=== PATIENT | male | born 1995 | race Caucasian/White ===

== ENCOUNTER 2018-01-17 05:58 | Emergency (ER) | payer MEDICAID ==
[~2018-01-17] VITALS: Ht 172.7 cm; Wt 81.0 kg
[~2018-01-17 05:58] MED LIST: FAMO40TA59 PO; ONDA4TAB12 PO
[2018-01-17] MEDS ORDERED: ipratropium/albuterol 3ml nebule NEB ONE (06:35)
[2018-01-17] MEDS ORDERED: albuterol 2.5 MG/3 ML nebule NEB ONE (06:35)
[2018-01-17] MEDS ORDERED: ALBU18HF2 INH (07:10)
[2018-01-17 07:30] VITALS: BP 145/106
== END 2018-01-17 07:30 | disposition home or self-care (01) ==
LOC: ER 05:59
DX: J45.901 Unspecified asthma with (acute) exacerbation (principal); G89.29 Other chronic pain; M54.2 Cervicalgia; F31.9 Bipolar disorder, unspecified; F12.90 Cannabis use, unspecified, uncomplicated; F17.200 Nicotine dependence, unspecified, uncomplicated; Z88.1 Allergy status to other antibiotic agents; Z79.899 Other long term (current) drug therapy
CPT/HCPCS: 71045; 93005; 94640; 94760; 99284

== ENCOUNTER 2018-03-29 23:00 | Emergency (ER) | payer MEDICAID ==
[~2018-03-29] VITALS: Ht 170.2 cm; Wt 59.0 kg
[~2018-03-29 23:00] MED LIST changes: +ALBU18HF2 INH
[2018-03-29 23:05] VITALS: BP 140/68
[2018-03-29 23:37] LABS: BASOPHILS # (AUTO) 0.1 X10'3 (0-0.2); BASOPHILS % (AUTO) 0.9 % (0-1); EOSINOPHILS % (AUTO) 0.3 % (0-6); HEMATOCRIT 41.6 % (42.0-52.0); HEMOGLOBIN 14.1 g/dl (14.0-17.9); LYMPHOCYTES # (AUTO) 1.4 X10'3 (1.1-4.8); LYMPHOCYTES % (AUTO) 23.5 % (21-51); MEAN CORPUSCULAR HEMOGLOBIN 31.1 PG (27.0-31.0); MEAN CORPUSCULAR VOLUME 91.5 FL (78-98); MEAN PLATELET VOLUME 7.3 FL (7.4-10.4); MONOCYTES # (AUTO) 0.4 X10'3 (0-0.9); MONOCYTES % (AUTO) 6.2 % (2-12); NEUTROPHILS # (AUTO) 4.1 X10'3 (1.8-7.7); NEUTROPHILS % (AUTO) 69.1 % (42-75); PLATELET COUNT 287 X10'3 (140-440); RED BLOOD COUNT 4.54 X10'6 (4.70-6.10); RED CELL DISTRIBUTION WIDTH 13.5 % (11.5-14.5); WHITE BLOOD COUNT 5.9 X10'3 (4.5-11.0)
[2018-03-29 23:51] LABS: PROTHROMBIN TIME 10.6 SECONDS (9.0-12.0)
[2018-03-29 23:52] LABS: ALANINE AMINOTRANSFERASE 28 U/L (12-78); ALBUMIN 4.3 G/DL (3.4-5.0); ALBUMIN/GLOBULIN RATIO 1.2 (1.1-1.5); ALKALINE PHOSPHATASE 89 IU/L (46-116); ANION GAP 9 (8-16); ASPARTATE AMINO TRANSFERASE 29 U/L (10-37); BILIRUBIN,TOTAL 0.7 MG/DL (0.1-1.0); BLOOD UREA NITROGEN 18 MG/DL (7-18); BUN/CREATININE RATIO 17.5 (5.4-32.0); CHLORIDE 102 MMOL/L (99-107); CREATININE 1.03 MG/DL (0.60-1.10); GLUCOSE 97 MG/DL (70-104); SODIUM 139 MMOL/L (135-145); TOTAL CARBON DIOXIDE 28.4 MMOL/L (24-32); eGFR 88 ML/MIN
[2018-03-30 00:58] LABS: CLARITY,URINE CLEAR (Clear); COLOR,URINE STRAW (Yellow); GLUCOSE, URINE NEGATIVE (Neg); KETONES,URINE TRACE mg/dl (Neg); LEUKOCYTE ESTERASE ,URINE NEGATIVE (Neg); NITRITES, URINE NEGATIVE (Neg); OCCULT BLOOD,URINE NEGATIVE (Neg); PROTEIN,URINE NEGATIVE (Neg); UROBILINOGEN,URINE 0.2 E.U/dL (0.2-1.0)
[2018-03-30 01:06] LABS: UA COLLECTION TYPE CLN CATCH MIDSTREAM
[2018-03-30] MEDS ORDERED: naproxen 500mg tablet PO ONE ×2 (01:15→01:40)
[2018-03-30] MEDS ORDERED: ondansetron 4mg rapidly disintigrating tab PO ONE (01:15)
[2018-03-30] MEDS ORDERED: NAPR-56 PO (01:38)
[2018-03-30] MEDS ORDERED: CYCL-1 PO (01:38)
[2018-03-30] MEDS ORDERED: dicyclomine 10 MG capsule PO ONE (01:40)
[2018-03-30] MEDS ORDERED: cyclobenzaprine 10mg tablet PO ONE (01:40)
[2018-03-30 04:40] LABS: URINE AMPHETAMINE SCREEN POSITIVE (Neg); URINE BARBITUATE SCREEN NEGATIVE (Neg); URINE BENZODIAZEPINES SCREEN NEGATIVE (Neg); URINE CANNABINOID SCREEN NEGATIVE (Neg); URINE COCAINE SCREEN NEGATIVE (Neg); URINE METHADONE SCREEN NEGATIVE (Neg); URINE OPIATE SCREEN NEGATIVE (Neg); URINE PHENCYCLIDINE SCREEN NEGATIVE (Neg)
== END 2018-03-30 01:55 | disposition home or self-care (01) ==
LOC: ER 23:00
DX: M25.512 Pain in left shoulder (principal); F19.20 Other psychoactive substance dependence, uncomplicated; F11.20 Opioid dependence, uncomplicated; J45.909 Unspecified asthma, uncomplicated; F12.90 Cannabis use, unspecified, uncomplicated; R10.9 Unspecified abdominal pain; Z88.1 Allergy status to other antibiotic agents; X50.0XXA Overexertion from strenuous movement or load, initial encounter; Y93.89 Activity, other specified; Y92.69 Other specified industrial and construction area as the place of occurrence of the external cause; Y99.9 Unspecified external cause status
CPT/HCPCS: 36415; 73030; 80053; 80305; 81003; 85025; 85610; 99285

== ENCOUNTER 2018-04-16 14:56 | Emergency (ER) | payer MEDICAID ==
[~2018-04-16] VITALS: Ht 170.2 cm; Wt 81.8 kg
[~2018-04-16 14:56] MED LIST changes: +CYCL-1 PO; +NAPR-56 PO
[2018-04-16] MEDS ORDERED: IBUP-1984 PO (16:08)
[2018-04-16 17:45] VITALS: BP 129/78
== END 2018-04-16 16:33 | disposition home or self-care (01) ==
LOC: ER 14:56
DX: M25.512 Pain in left shoulder (principal); R42 Dizziness and giddiness; J45.909 Unspecified asthma, uncomplicated; F12.90 Cannabis use, unspecified, uncomplicated; F15.90 Other stimulant use, unspecified, uncomplicated; Z91.030 Bee allergy status
CPT/HCPCS: 73030; 99284

== ENCOUNTER 2019-11-08 10:39 | Emergency (ER) | payer MEDICAID, OTHER ==
[~2019-11-08] VITALS: Ht 170.2 cm; Wt 77.3 kg
[~2019-11-08 10:39] MED LIST changes: -NAPR-56 PO
[2019-11-08 11:00] VITALS: BP 119/72
[2019-11-08] MEDS ORDERED: LIDOcaine 1% W/epiNEPHrine 1:200,000 10ml vial IJ ONE (12:50)
[2019-11-08] MEDS ORDERED: DOXY100C77 PO (13:25)
== END 2019-11-08 13:50 | disposition home or self-care (01) ==
LOC: ER 10:39
DX: L02.31 Cutaneous abscess of buttock (principal); J45.909 Unspecified asthma, uncomplicated; F31.9 Bipolar disorder, unspecified; F12.90 Cannabis use, unspecified, uncomplicated; Z72.89 Other problems related to lifestyle; Z91.030 Bee allergy status; Z79.2 Long term (current) use of antibiotics; Z79.899 Other long term (current) drug therapy
CPT/HCPCS: 10060; 99283

== ENCOUNTER 2019-12-28 13:47 | Emergency (ER) | payer MEDICAID, OTHER ==
[~2019-12-28] VITALS: Ht 177.8 cm; Wt 90.0 kg
[2019-12-28 13:59] VITALS: BP 129/63
[2019-12-28] MEDS ORDERED: BACDS PO (15:15)
== END 2019-12-28 15:37 | disposition home or self-care (01) ==
LOC: ER 13:48
DX: S61.216D Laceration without foreign body of right little finger without damage to nail, subsequent encounter (principal); L08.89 Other specified local infections of the skin and subcutaneous tissue; J45.909 Unspecified asthma, uncomplicated; F12.90 Cannabis use, unspecified, uncomplicated; Z91.030 Bee allergy status; X58.XXXD Exposure to other specified factors, subsequent encounter
CPT/HCPCS: 99283

== ENCOUNTER 2021-05-25 08:55 | Emergency (ER) | payer MEDICAID, OTHER ==
[~2021-05-25] VITALS: Ht 170.2 cm; Wt 86.4 kg
[2021-05-25 09:26] VITALS: BP 131/78
[2021-05-25] MEDS ORDERED: IBUP-1984 PO (10:28)
== END 2021-05-25 10:42 | disposition home or self-care (01) ==
LOC: ER 08:56
DX: M79.632 Pain in left forearm (principal); F31.9 Bipolar disorder, unspecified; F12.10 Cannabis abuse, uncomplicated; J45.909 Unspecified asthma, uncomplicated; Z91.018 Allergy to other foods; Z79.899 Other long term (current) drug therapy
CPT/HCPCS: 73090; 99283

== ENCOUNTER 2021-12-11 12:52 | Emergency (ER) | payer MEDICAID ==
[~2021-12-11] VITALS: Ht 170.2 cm; Wt 79.5 kg
[2021-12-11] MEDS ORDERED: quetiapine 100mg tablet PO STA (15:50)
[2021-12-11] MEDS ORDERED: risperiDONE 2mg tablet PO ONE (15:50)
[2021-12-11 15:57] LABS: CLARITY,URINE CLEAR (Clear); COLOR,URINE YELLOW (Yellow); GLUCOSE, URINE NEGATIVE (Neg); KETONES,URINE NEGATIVE (Neg); LEUKOCYTE ESTERASE ,URINE NEGATIVE (Neg); NITRITES, URINE NEGATIVE (Neg); OCCULT BLOOD,URINE NEGATIVE (Neg); PROTEIN,URINE NEGATIVE (Neg); UROBILINOGEN,URINE 0.2 E.U/dL (0.2-1.0)
[2021-12-11 15:58] LABS: UA COLLECTION TYPE CLN CATCH MIDSTREAM
[2021-12-11 15:59] LABS: URINE AMPHETAMINE SCREEN NEGATIVE (Neg); URINE BARBITUATE SCREEN NEGATIVE (Neg); URINE BENZODIAZEPINES SCREEN NEGATIVE (Neg); URINE CANNABINOID SCREEN POSITIVE (Neg); URINE COCAINE SCREEN NEGATIVE (Neg); URINE METHADONE SCREEN NEGATIVE (Neg); URINE OPIATE SCREEN NEGATIVE (Neg); URINE PHENCYCLIDINE SCREEN NEGATIVE (Neg)
[2021-12-11] MEDS ORDERED: QUEtiapine 25mg tablet PO STA (16:04)
[2021-12-11 16:29] LABS: BASOPHILS % (AUTO) 0.6 % (0-1); EOSINOPHILS # (AUTO) 0.1 X10'3 (0-0.9); EOSINOPHILS % (AUTO) 1.4 % (0-6); HEMATOCRIT 39.6 % (42.0-52.0); HEMOGLOBIN 13.5 g/dl (14.0-17.9); LYMPHOCYTES # (AUTO) 2.4 X10'3 (1.1-4.8); LYMPHOCYTES % (AUTO) 30.6 % (21-51); MEAN CORPUSCULAR HEMOGLOBIN 31.8 PG (27.0-31.0); MEAN CORPUSCULAR HGB CONC 34.1 g/dL (33.0-36.5); MEAN PLATELET VOLUME 7.6 FL (7.4-10.4); MONOCYTES # (AUTO) 0.5 X10'3 (0-0.9); MONOCYTES % (AUTO) 6.4 % (2-12); NEUTROPHILS # (AUTO) 4.8 X10'3 (1.8-7.7); PLATELET COUNT 244 X10'3 (140-440); RED BLOOD COUNT 4.26 X10'6 (4.70-6.10); WHITE BLOOD COUNT 7.9 X10'3 (4.5-11.0)
[2021-12-11 16:47] LABS: ALANINE AMINOTRANSFERASE 25 U/L (12-78); ALBUMIN 3.6 G/DL (3.4-5.0); ALBUMIN/GLOBULIN RATIO 1.2 (1.1-1.5); ALKALINE PHOSPHATASE 69 IU/L (46-116); ANION GAP 4 (8-16); ASPARTATE AMINO TRANSFERASE 24 U/L (10-37); BILIRUBIN,TOTAL 0.3 MG/DL (0.1-1.0); BLOOD UREA NITROGEN 14 MG/DL (7-18); BUN/CREATININE RATIO 14.1 (5.4-32.0); CALCIUM 8.6 MG/DL (8.5-10.1); CHLORIDE 105 MMOL/L (99-107); CREATININE 0.99 MG/DL (0.60-1.10); GLUCOSE 88 MG/DL (70-104); POTASSIUM 4.2 MMOL/L (3.5-5.1); SODIUM 139 MMOL/L (135-145); TOTAL CARBON DIOXIDE 30.3 MMOL/L (24-32); TOTAL PROTEIN 6.5 G/DL (6.4-8.2); eGFR 90 ML/MIN
[2021-12-11 16:55] LABS: ETHANOL < 0.010 GM/DL (0.0-0.010)
[2021-12-11] MEDS ORDERED: NO HOME MEDS (19:06)
--- NOTE | 2021-12-11 19:10 | NUR ---
The [facility] [place]. He has been very cooperative with the move and completing the evening assessment. He appears very depressed. He gives almost no eye contact and his affect is flat. He reports he has been feeling very depressed and having intolerable voices and visual hallucinations. He reports his symptoms are some better after receiving medications. He denies a history of ETOH withdrawals or physical complaints. Reports he is suicidal but does not have a plan but has been thinking about it more and more over recent days.
--- NOTE | 2021-12-11 19:20 | NUR ---
Packet sent to [facility]
--- NOTE | 2021-12-11 20:45 | NUR ---
The patient appears to be sleeping
--- NOTE | 2021-12-11 22:32 | NUR ---
The patient appears to be sleeping.
--- NOTE | 2021-12-12 00:14 | NUR ---
The patient appears to be sleeping
--- NOTE | 2021-12-12 01:14 | NUR ---
The patient appears to be sleeping
--- NOTE | 2021-12-12 03:14 | NUR ---
The patient appears to be sleeping
--- NOTE | 2021-12-12 05:21 | NUR ---
The patient awakened for vital signs. He is alert. HR 46 and BP 98/69. He stated that at night his HR tends to be low. Dr. Tse made aware and orders received.
--- NOTE | 2021-12-12 05:30 | NUR ---
The patient with HR of 40 and BP 98/[address] Tse made aware. EKG done.
--- NOTE | 2021-12-12 05:42 | NUR ---
ASSUMED CARE OF PT. PT HAS BEEN MOVED FROM OVERFLOW TO ER D/T CONCERN THAT HE WAS BRADYCARDIC. PT WILL BE MONITORED. HE WALKED TO ER BED. NO COMPLAINTS FROM PT.
--- NOTE | 2021-12-12 05:51 | NUR ---
REVIEWED VITAL SIGNS WITH DR MYLES
--- NOTE | 2021-12-12 06:45 | NUR ---
PT SLEEPING AT THIS TIME.RR WNL ,VITALS STABLE .WILL CONT TO MONITOR.
[2021-12-12 07:03] VITALS: BP 105/72
--- NOTE | 2021-12-12 08:00 | NUR ---
PT SLEEPING AT THIS TIME ,ON TELE MONITOR .HR FLUCATE BTW 48-70'S.
--- NOTE | 2021-12-12 09:12 | NUR ---
[facility].
--- NOTE | 2021-12-12 09:29 | NUR ---
WENT TO USE RESTROOM ,CAME BACK NOW RESTING IN BED.
--- NOTE | 2021-12-12 10:07 | NUR ---
Pt resting in bed with eyes closed. No signs or symptoms of distress. Equal rise and fall of chest. Will continue to monitor.
--- NOTE | 2021-12-12 11:12 | NUR ---
Pt resting with eyes closed. Equal rise and fall of chest.
[2021-12-12] MEDS ORDERED: olanzapine 10mg tablet PO STA (11:31)
[2021-12-12] MEDS ORDERED: OLANZapine 2.5MG tablet PO ONE (11:45)
[2021-12-12] MEDS ORDERED: OLANZapine 2.5MG tablet PO SCH (11:45)
--- NOTE | 2021-12-12 12:18 | NUR ---
Pt resting in bed with eyes open. Pt given water, and states he has no needs at this time. No signs or symptoms of distress noted. Will continue to monitor.
--- NOTE | 2021-12-12 12:37 | NUR ---
[facility] office called to inform that pt has been accepted to [facility] by MD [facility]by. TAD office stated they will be at [facility] at approx. 1400 for pickup.
--- NOTE | 2021-12-12 13:28 | NUR ---
Pt is resting in bed with eyes open. Pt consumed 75% of his lunch and states he has no needs at this time. No signs or symptoms of distress noted. Will continue to monitor.
[2021-12-13] MEDS ORDERED: OLANZapine 2.5MG tablet PO SCH (08:00)
[2021-12-13] MEDS ORDERED: OLANZAPINE 5 MG TABLET PO SCH (08:00)
== END 2021-12-12 15:01 ==
LOC: ER 12:52
DX: R45.851 Suicidal ideations (principal); Z20.822 Contact with and (suspected) exposure to COVID-19; R44.0 Auditory hallucinations; F31.9 Bipolar disorder, unspecified; J45.909 Unspecified asthma, uncomplicated; F12.90 Cannabis use, unspecified, uncomplicated; F15.90 Other stimulant use, unspecified, uncomplicated; Z72.89 Other problems related to lifestyle; Z91.030 Bee allergy status
CPT/HCPCS: 36415; 70450; 80053; 80305; 80320; 81003; 84443; 85025; 87635; 93005; 99285; C9803

== ENCOUNTER 2022-08-01 23:28 | Emergency (ER) | payer MEDICAID ==
[~2022-08-01] VITALS: Ht 170.2 cm; Wt 84.1 kg
[~2022-08-01 23:28] MED LIST changes: -ALBU18HF2 INH; -CYCL-1 PO; -FAMO40TA59 PO; +NO HOME MEDS; -ONDA4TAB12 PO
[2022-08-02 01:14] VITALS: BP 113/70
[2022-08-02] MEDS ORDERED: naproxen 500mg tablet PO ONE (01:45)
[2022-08-02] MEDS ORDERED: NAPR-56 PO (01:54)
== END 2022-08-02 02:01 | disposition home or self-care (01) ==
LOC: ER 23:28
DX: S46.911A Strain of unspecified muscle, fascia and tendon at shoulder and upper arm level, right arm, initial encounter (principal); F31.9 Bipolar disorder, unspecified; J45.909 Unspecified asthma, uncomplicated; F12.10 Cannabis abuse, uncomplicated; F15.10 Other stimulant abuse, uncomplicated; Z91.030 Bee allergy status; X58.XXXA Exposure to other specified factors, initial encounter; Y93.89 Activity, other specified; Y92.89 Other specified places as the place of occurrence of the external cause; Y99.8 Other external cause status
CPT/HCPCS: 73030; 99283; A4565

== ENCOUNTER 2024-03-29 12:25 | Inpatient (IN) | payer MEDICARE, MEDICAID ==
[~2024-03-29] VITALS: Ht 172.7 cm; Wt 99.4 kg
[2024-03-29 12:59] LABS: BASOPHILS # (AUTO) 0.1 X10'3 (0-0.2); BASOPHILS % (AUTO) 0.9 % (0-1); EOSINOPHILS # (AUTO) 0.1 X10'3 (0-0.9); EOSINOPHILS % (AUTO) 0.8 % (0-6); HEMATOCRIT 44.7 % (42.0-52.0); HEMOGLOBIN 15.4 g/dl (14.0-17.9); LYMPHOCYTES # (AUTO) 2.7 X10'3 (1.1-4.8); LYMPHOCYTES % (AUTO) 36.1 % (21-51); MEAN CORPUSCULAR HEMOGLOBIN 31.9 PG (27.0-31.0); MEAN CORPUSCULAR HGB CONC 34.3 g/dL (33.0-36.5); MEAN CORPUSCULAR VOLUME 92.9 FL (78-98); MEAN PLATELET VOLUME 7.4 FL (7.4-10.4); MONOCYTES # (AUTO) 0.7 X10'3 (0-0.9); MONOCYTES % (AUTO) 9.6 % (2-12); NEUTROPHILS # (AUTO) 3.9 X10'3 (1.8-7.7); NEUTROPHILS % (AUTO) 52.6 % (42-75); PLATELET COUNT 267 X10'3 (140-440); RED BLOOD COUNT 4.82 X10'6 (4.70-6.10); RED CELL DISTRIBUTION WIDTH 13.3 % (11.5-14.5); WHITE BLOOD COUNT 7.5 X10'3 (4.5-11.0)
[2024-03-29 13:17] LABS: ALBUMIN 3.6 G/DL (3.4-5.0); ANION GAP 10 (8-16); BLOOD UREA NITROGEN 15 MG/DL (7-18); BUN/CREATININE RATIO 15.3 (10.0-20.0); CALCIUM 8.9 MG/DL (8.5-10.1); CHLORIDE 105 MMOL/L (99-107); CREATININE 0.98 MG/DL (0.60-1.10); ETHANOL 17 MG/DL (<10); GLUCOSE 95 MG/DL (70-104); POTASSIUM 3.7 MMOL/L (3.5-5.1); SODIUM 139 MMOL/L (135-145); THYROID STIMULATING HORMONE 1.11 ulU/ml (0.34-4.50); TOTAL CARBON DIOXIDE 23.6 MMOL/L (24-32); eCRCL 106 ML/MIN; eGFR 89 ML/MIN
[2024-03-29 16:52] LABS: BILIRUBIN,URINE NEGATIVE (Neg); CLARITY,URINE CLOUDY (Clear); COLOR,URINE YELLOW (Yellow); GLUCOSE, URINE NEGATIVE (Neg); KETONES,URINE NEGATIVE (Neg); LEUKOCYTE ESTERASE ,URINE NEGATIVE (Neg); NITRITES, URINE NEGATIVE (Neg); OCCULT BLOOD,URINE NEGATIVE (Neg); PH,URINE 6.5 (4.8-8.0); PROTEIN,URINE NEGATIVE (Neg); UROBILINOGEN,URINE 0.2 E.U/dL (0.2-1.0)
[2024-03-29 17:04] LABS: UA COLLECTION TYPE CLN CATCH MIDSTREAM
[2024-03-29 17:13] LABS: MUCUS STRANDS FEW /LPF (Neg); SQUAMOUS EPITHELIAL CELL,UR FEW /LPF (FEW)
[2024-03-29 17:14] LABS: BACTERIA,URINE FEW /HPF (Neg); RBC,URINE 0-2 /HPF (0-2); URINE AMPHETAMINE SCREEN NEGATIVE (Neg); URINE BARBITUATE SCREEN NEGATIVE (Neg); URINE BENZODIAZEPINES SCREEN NEGATIVE (Neg); URINE CANNABINOID SCREEN NEGATIVE (Neg); URINE COCAINE SCREEN POSITIVE (Neg); URINE METHADONE SCREEN NEGATIVE (Neg); URINE OPIATE SCREEN NEGATIVE (Neg); URINE PHENCYCLIDINE SCREEN NEGATIVE (Neg)
[2024-03-29 17:15] LABS: AMORPHOUS PHOSPHATES 2+; WBC,URINE 0-4 /HPF (0-4)
[2024-03-29] MEDS: nicotine 14mg patch - 24hr TD ONE (19:03)
[2024-03-30 12:40] VITALS: BP 142/100; PULSE 84; RESP 16; TEMP 96.9; O2SAT 98
[2024-03-30] MEDS ORDERED: loperamide 2mg capsule PO PRN (13:00)
[2024-03-30] MEDS ORDERED: mag hydrox/Alum hydrox/simeth 30ml oral suspension PO PRN (13:00)
[2024-03-30] MEDS: LORazepam 1 MG tablet PO ONE (13:22)
[2024-03-30] MEDS: nicotine 21mg patch - 24 hr TD ONE (13:23)
[2024-03-30 13:56] VITALS: RESP 16; O2SAT 98
[2024-03-30] MEDS: acetaminophen 325mg tablet PO PRN (16:47)
[2024-03-30 19:00] VITALS: RESP 18; O2SAT 20
[2024-03-30] MEDS: LORazepam 1 MG tablet PO PRN (19:22)
[2024-03-30 20:00] VITALS: BP 142/100; PULSE 90; RESP 20; TEMP 97.9; O2SAT 94
[2024-03-30] MEDS ORDERED: buPROPion SR 150mg tablet PO SCH (20:00)
[2024-03-30] MEDS ORDERED: gabapentin 400mg capsule PO SCH (21:00)
[2024-03-30] MEDS ORDERED: PALI156D IM (21:15)
[2024-03-30] MEDS ORDERED: gabapentin 300mg capsule PO SCH (21:35)
[2024-03-30] MEDS ORDERED: buPROPion SR 100mg tab PO SCH (21:36)
[2024-03-30] MEDS: buPROPion SR 100mg tab PO SCH (21:48)
[2024-03-30] MEDS: quetiapine 100mg tablet PO ONE (21:49)
[2024-03-30] MEDS: benztropine 1mg tablet PO SCH (21:49)
[2024-03-30] MEDS: gabapentin 300mg capsule PO SCH (21:51)
[2024-03-31] MEDS: quetiapine 100mg tablet PO PRN (02:17)
[2024-03-31 07:30] VITALS: BP 139/87; PULSE 104; RESP 12; TEMP 97.8; O2SAT 96
[2024-03-31] MEDS: aripiprazole 10MG tablet PO SCH (08:30)
[2024-03-31] MEDS: nicotine 21mg patch - 24 hr TD SCH (08:31)
[2024-03-31] MEDS: paliperidone palmitate 156 mg/ml inj.**IM only IM SCH (08:35)
[2024-03-31 09:05] LABS: HEMOGLOBIN A1C 5.1 % (4.5-6.2)
[2024-03-31 09:15] LABS: CHOL/HDL RATIO 8.1 (0.00-4.99); CHOLESTEROL 161 MG/DL (0-200); HDL CHOLESTEROL 20 MG/DL (35-60); LDL CHOLESTEROL 108 MG/DL (50-100); TRIGLYCERIDES 248 MG/DL (20-135)
[2024-03-31 19:00] VITALS: BP 137/90; PULSE 101; RESP 18; TEMP 98.1; O2SAT 96
[2024-03-31] MEDS: LORazepam 0.5 MG tablet PO PRN (19:53)
[2024-03-31] MEDS: quetiapine 100mg tablet PO ONE (22:20)
[2024-04-01] MEDS: hydrOXYzine 25 MG tablet PO PRN (02:28)
[2024-04-01] MEDS: OLANZAPINE 5 MG TABLET PO ONE ×2 (05:23→05:59)
[2024-04-01] MEDS: ondansetron 4mg rapidly disintigrating tab PO PRN (07:03)
[2024-04-01] MEDS: OMEGA-3/DHA/EPA/FISH OIL 1 EACH CAPSULE.DR PO SCH (07:05)
[2024-04-01 07:51] VITALS: BP 144/98; PULSE 102; RESP 16; TEMP 98.5; O2SAT 97
[2024-04-01] MEDS: LORazepam 1 MG tablet PO ONE (09:18)
[2024-04-01] MEDS: OLANZapine 5mg rapidly disint. tablet PO ONE (09:18)
[2024-04-01] MEDS: diphenhydrAMINE 25mg capsule PO ONE (09:18)
[2024-04-01 16:06] LABS: BASOPHILS % (AUTO) 0.4 % (0-1); EOSINOPHILS % (AUTO) 0.6 % (0-6); HEMATOCRIT 44.3 % (42.0-52.0); HEMOGLOBIN 14.9 g/dl (14.0-17.9); LYMPHOCYTES # (AUTO) 2.2 X10'3 (1.1-4.8); LYMPHOCYTES % (AUTO) 24.5 % (21-51); MEAN CORPUSCULAR HEMOGLOBIN 31.2 PG (27.0-31.0); MEAN CORPUSCULAR HGB CONC 33.7 g/dL (33.0-36.5); MEAN CORPUSCULAR VOLUME 92.7 FL (78-98); MEAN PLATELET VOLUME 7.4 FL (7.4-10.4); MONOCYTES # (AUTO) 0.8 X10'3 (0-0.9); MONOCYTES % (AUTO) 8.7 % (2-12); NEUTROPHILS # (AUTO) 5.9 X10'3 (1.8-7.7); NEUTROPHILS % (AUTO) 65.8 % (42-75); PLATELET COUNT 248 X10'3 (140-440); RED BLOOD COUNT 4.78 X10'6 (4.70-6.10); RED CELL DISTRIBUTION WIDTH 13.4 % (11.5-14.5); WHITE BLOOD COUNT 8.9 X10'3 (4.5-11.0)
[2024-04-01 16:22] LABS: ALANINE AMINOTRANSFERASE 159 U/L (12-78); ALBUMIN 3.9 G/DL (3.4-5.0); ALKALINE PHOSPHATASE 100 IU/L (46-116); ANION GAP 7 (8-16); ASPARTATE AMINO TRANSFERASE 88 U/L (10-37); BILIRUBIN,TOTAL 0.5 MG/DL (0.1-1.0); BLOOD UREA NITROGEN 16 MG/DL (7-18); BUN/CREATININE RATIO 13.7 (10.0-20.0); CALCIUM 9.3 MG/DL (8.5-10.1); CHLORIDE 101 MMOL/L (99-107); CREATININE 1.17 MG/DL (0.60-1.10); GLUCOSE 94 MG/DL (70-104); POTASSIUM 4.3 MMOL/L (3.5-5.1); SODIUM 136 MMOL/L (135-145); TOTAL CARBON DIOXIDE 28.5 MMOL/L (24-32); TOTAL PROTEIN 7.9 G/DL (6.4-8.2); eCRCL 89 ML/MIN; eGFR 73 ML/MIN
[2024-04-01] MEDS: quetiapine 100mg tablet PO SCH (19:03)
[2024-04-01 20:00] VITALS: BP 149/86; PULSE 91; RESP 22; TEMP 98.8; O2SAT 97
[2024-04-01] MEDS ORDERED: quetiapine 100mg tablet PO SCH ×2 (21:00)
[2024-04-01] MEDS: thiamine 100mg tablet PO SCH (21:04)
[2024-04-02 07:30] VITALS: RESP 14
[2024-04-02] MEDS: vitamin B comp w/Vit. C tab 1 TAB TABLET PO SCH (10:30)
[2024-04-02] MEDS: multivitamins, therapeutics tablet PO SCH (10:32)
[2024-04-02] MEDS: folic acid 1mg tablet PO SCH (10:32)
[2024-04-02 11:00] VITALS: BP 121/75; PULSE 98; RESP 14; TEMP 97.7; O2SAT 95
[2024-04-02 11:23] LABS: BILIRUBIN,URINE NEGATIVE (Neg); CLARITY,URINE SLIGHTLY CLOUDY (Clear); COLOR,URINE YELLOW (Yellow); GLUCOSE, URINE NEGATIVE (Neg); KETONES,URINE NEGATIVE (Neg); LEUKOCYTE ESTERASE ,URINE NEGATIVE (Neg); NITRITES, URINE NEGATIVE (Neg); OCCULT BLOOD,URINE NEGATIVE (Neg); PROTEIN,URINE NEGATIVE (Neg); UROBILINOGEN,URINE 0.2 E.U/dL (0.2-1.0)
[2024-04-02 12:03] LABS: MUCUS STRANDS MANY /LPF (Neg); SQUAMOUS EPITHELIAL CELL,UR FEW /LPF (FEW); UA COLLECTION TYPE CLN CATCH MIDSTREAM
[2024-04-02 12:04] LABS: BACTERIA,URINE 2+ /HPF (Neg); RBC,URINE 0-2 /HPF (0-2); WBC,URINE 0-4 /HPF (0-4)
[2024-04-02 19:20] VITALS: RESP 16; O2SAT 97
[2024-04-02 20:00] VITALS: BP 143/94; PULSE 110; RESP 16; TEMP 98; O2SAT 97
[2024-04-03 03:34] VITALS: BP 150/101; PULSE 85; RESP 18; TEMP 98.8; O2SAT 96
[2024-04-03 07:30] VITALS: BP 143/96; PULSE 84; RESP 24; TEMP 97.7; O2SAT 98
[2024-04-03] MEDS: NICOTINE POLACRILEX 2 MG LOZENGE BC PRN (14:35)
[2024-04-03 19:00] VITALS: RESP 20; O2SAT 95
[2024-04-03 19:24] VITALS: BP 138/85; PULSE 101; RESP 20; TEMP 98.6; O2SAT 95
[2024-04-03] MEDS ORDERED: benztropine 1mg tablet PO PRN (21:50)
[2024-04-03 23:50] VITALS: BP 130/89; PULSE 87; RESP 18; TEMP 98.4; O2SAT 94
[2024-04-04] MEDS: quetiapine 100mg tablet PO ONE ×2 (00:10→22:58)
[2024-04-04] MEDS: QUEtiapine 25mg tablet PO ONE (00:12)
[2024-04-04] MEDS: diphenhydrAMINE 50 mg/ml inj ONE (00:45)
[2024-04-04] MEDS: OLANZapine **IM** 10 mg inj. IM ONE (00:45)
[2024-04-04] MEDS: LORazepam 2 mg/ml vial ONE (00:47)
[2024-04-04 00:59] VITALS: BP 140/95; PULSE 107; RESP 18; TEMP 98.3; O2SAT 94
[2024-04-04 05:24] LABS: HBSAG SCREEN Negative (Negative); HEP B CORE AB, IGM Negative (Negative); HEP B CORE AB, TOT Negative (Negative); HEP B SURF AB Reactive (.)
[2024-04-04 07:30] VITALS: BP 121/100; PULSE 65; RESP 16; TEMP 96.9; O2SAT 99
[2024-04-04] MEDS: magnesium hydroxide 30ml (MOM) UD suspension PO PRN (12:41)
[2024-04-04 19:00] VITALS: RESP 18; O2SAT 98
[2024-04-04 19:05] VITALS: BP 129/66; PULSE 82; RESP 18; TEMP 98.6; O2SAT 95
[2024-04-04] MEDS: acetaminophen 325mg tablet PO PRN (23:49)
[2024-04-05 07:00] VITALS: RESP 16; O2SAT 97
[2024-04-05 08:00] VITALS: BP 121/77; PULSE 71; RESP 16; TEMP 97.5; O2SAT 97
[2024-04-05 19:00] VITALS: RESP 18; O2SAT 97
[2024-04-05 20:00] VITALS: PULSE 75; RESP 14; TEMP 96.5; O2SAT 96
[2024-04-06 07:10] VITALS: RESP 17; O2SAT 98
[2024-04-06 08:20] VITALS: BP 124/85; PULSE 83; RESP 17; TEMP 97.9; O2SAT 98
[2024-04-06 19:00] VITALS: RESP 15; O2SAT 96
[2024-04-06 20:00] VITALS: BP 134/83; PULSE 76; RESP 15; TEMP 96.8; O2SAT 96
[2024-04-07] MEDS: quetiapine 100mg tablet PO ONE (01:35)
[2024-04-07 07:00] VITALS: BP 122/85; PULSE 69; RESP 12; TEMP 97; O2SAT 96; O2SAT 97
[2024-04-07 14:27] LABS: ALANINE AMINOTRANSFERASE 87 U/L (12-78); ALBUMIN 3.8 G/DL (3.4-5.0); ALBUMIN/GLOBULIN RATIO 1.1 (1.1-1.5); ALKALINE PHOSPHATASE 98 IU/L (46-116); ANION GAP 7 (8-16); ASPARTATE AMINO TRANSFERASE 26 U/L (10-37); BILIRUBIN,TOTAL 0.4 MG/DL (0.1-1.0); BLOOD UREA NITROGEN 19 MG/DL (7-18); BUN/CREATININE RATIO 14.3 (10.0-20.0); CALCIUM 8.7 MG/DL (8.5-10.1); CHLORIDE 102 MMOL/L (99-107); CREATININE 1.33 MG/DL (0.60-1.10); GLUCOSE 105 MG/DL (70-104); POTASSIUM 4.2 MMOL/L (3.5-5.1); SODIUM 136 MMOL/L (135-145); TOTAL CARBON DIOXIDE 26.8 MMOL/L (24-32); TOTAL PROTEIN 7.3 G/DL (6.4-8.2); eCRCL 78 ML/MIN; eGFR 63 ML/MIN
[2024-04-07 19:00] VITALS: RESP 18; O2SAT 98
[2024-04-07 20:00] VITALS: BP 140/83; PULSE 72; RESP 18; TEMP 97.6; O2SAT 98
[2024-04-08] MEDS: quetiapine 100mg tablet PO ONE (02:20)
[2024-04-08 07:30] VITALS: BP 124/76; PULSE 93; RESP 12; TEMP 97.6; O2SAT 96
[2024-04-08 19:27] VITALS: BP 136/84; PULSE 103; RESP 18; TEMP 97.3; O2SAT 96
[2024-04-09 07:30] VITALS: BP 114/55; PULSE 58; RESP 16; TEMP 97.4; O2SAT 98
[2024-04-09] MEDS ORDERED: LORazepam 0.5 MG tablet PO PRN (17:45)
[2024-04-09 19:00] VITALS: BP 135/81; PULSE 80; RESP 18; TEMP 97.8; O2SAT 97
[2024-04-10 07:30] VITALS: BP 107/62; PULSE 63; RESP 16; TEMP 96.9; O2SAT 97
[2024-04-10] MEDS ORDERED: NICO-687 TD ×2 (10:46→12:29)
[2024-04-10] MEDS ORDERED: BUPR100T15 PO ×2 (10:46→12:29)
[2024-04-10] MEDS ORDERED: QUET100T34 PO ×2 (10:46→12:29)
[2024-04-10] MEDS ORDERED: HYDR-3686 PO ×2 (10:46→12:29)
[2024-04-10] MEDS ORDERED: MULT-25 PO ×2 (10:46→12:29)
[2024-04-10] MEDS ORDERED: PALI3TAB5 PO ×2 (11:01→12:29)
[2024-04-28] MEDS ORDERED: PALIPERIDONE 3 MG TAB.ER.24 PO SCH (08:00)
== END 2024-04-10 13:55 | disposition home or self-care (01) | DRG 885 ==
LOC: ER 12:27 → ED HOLD 03-30 11:00 → ADULT MH 03-30 12:43
PROVIDERS: ADMIT Psychiatry & Neurology Psychiatry; ATTEND Psychiatry & Neurology Psychiatry
PROC: GZHZZZZ Group Psychotherapy (ICD-10-PCS; principal; 2024-03-31)
DX: F25.9 Schizoaffective disorder, unspecified (principal); F10.14 Alcohol abuse with alcohol-induced mood disorder; R45.851 Suicidal ideations; F19.20 Other psychoactive substance dependence, uncomplicated; F10.129 Alcohol abuse with intoxication, unspecified; F14.10 Cocaine abuse, uncomplicated; F31.9 Bipolar disorder, unspecified; F41.9 Anxiety disorder, unspecified; E78.1 Pure hyperglyceridemia; J45.909 Unspecified asthma, uncomplicated; F15.90 Other stimulant use, unspecified, uncomplicated; Z79.899 Other long term (current) drug therapy; Z91.51 Personal history of suicidal behavior; Z91.09 Other allergy status, other than to drugs and biological substances
CPT/HCPCS: 36415; 80048; 80053; 80061; 80305; 80320; 81001; 82140; 83036; 84145; 84443; 85025; 86704; 86705; 86706; 87081; 87340; 87811; 99285; A6250; J1200; J2060; J3490; Q0163; Q0177